=== PATIENT | male | born 1995 | race Caucasian/White ===

== ENCOUNTER 2017-01-31 01:50 | Emergency (ER) | payer SELFPAY ==
[2017-01-31 02:02] VITALS: BP 126/85
--- NOTE | 2017-01-31 02:44 | ED ---
Skin Complaint - HPI Summary HPI Summary: Pt here w/ lac to Lt foot. Was walking bare foot outside when he accidentally stepped onto the sharp rim of a grill cover. Foot bleeding. No concern for foreign body. Was able to ambulate on it after it was wrapped up. Imms are UTD. Admits to drinking ETOH after. Moving toes and ankle well w/o restriction and numbness, tingling, weakness. No other injuries to report. - History of Current Complaint Chief Complaint: EDExtremityLower Time Seen by Provider: 01/31/17 02:36 Stated Complaint: LT FOOT LAC Hx Obtained From: Patient, Family/Print Line Inspector - male friend accompanies him Pain Intensity: 2 - Allergy/Home Medications Allergies/Adverse Reactions: Allergies Allergy/AdvReac Type Severity Reaction Status Date / Time No Known Allergies Allergy Verified 01/31/17 02:04 PMH/Surg Hx/FS Hx/Imm Hx Previously Healthy: Yes Endocrine/Hematology History: Denies: Hx Anticoagulant Therapy, Hx Blood Disorders, Autoimmune Disease Infectious Disease History: No Infectious Disease History: Denies: Traveled Outside the [place] in Last 30 Days - Social History Alcohol Use: None Substance Use Type: Reports: None Review of Systems Positive: no symptoms reported Musculoskeletal: Negative Skin: Other - see HPI Neurological: Negative Psychological: Normal All Other Systems Reviewed And Are Negative: Yes Physical Exam Triage Information Reviewed: Yes Vital Signs On Initial Exam: Initial Vitals Temp Pulse Resp BP Pulse Ox 97.5 F 82 16 126/85 99 01/31/17 02:00 01/31/17 02:00 01/31/17 02:00 01/31/17 02:00 01/31/17 02:00 Vital Signs Reviewed: Yes Appearance: Positive: Well-Appearing, No Pain Distress, Well-Nourished Skin: Positive: Warm - linear laceration over MT plantar surface of Lt foot Head/Face: Positive: Normal Head/Face Inspection ENT: Positive: Hearing grossly normal Cardiovascular: Positive: Normal, Pulses are Symmetrical in both Upper and Lower Extremities Musculoskeletal: Positive: Normal, Strength/ROM Intact Neurological: Positive: Normal, Sensory/Motor Intact, Alert, Oriented to Person Place, Time Psychiatric: Positive: Normal Procedures - Laceration/Wound Repair 1 Location: lower extremity - Left plantar surface of foot Description: Linear Anesthesia: Local, Marcaine Length, Depth and Shape: 9cm x 1cm at lateral edges (0.25cm at shallowest in center of lac) Betadine Prep?: Yes Irrigated w/ Saline (ccs): 250 - soaked followed by irrigation w/ hibaclens solution Laceration/Wound Explored: clean Closure: Single Layer Suture Type: Nylon - 4-0 Number of Sutures: 14 - 2 horizontal mattress; 12 simple interrupted Layer Closure?: No Sterile Dressing Applied?: Yes - triple antibtioic + ab gauze + coban + FARTUN wrap Diagnostics - Vital Signs Vital Signs Temp Pulse Resp BP Pulse Ox 01/31/17 02:00 97.5 F 82 16 126/85 99 - Laboratory Lab Statement: Any lab studies that have been ordered have been reviewed, and results considered in the medical decision making process. Course/Dx - Diagnoses Provider Diagnoses: Laceration of foot, left Discharge - Discharge Plan Condition: Stable Disposition: HOME Prescriptions: Cephalexin CAP* [Keflex CAP*] 500 mg PO QID #40 cap Patient Education Materials: Laceration (ED), Crutch Instructions (ED), Care For Your Stitches (ED) Referrals: [facility] [place] [facility] [place] [facility] [Outside] Additional Instructions: Keep dressing clean, dry and intact for 48 hours. After this time, you may remove dressing - gently wash daily with antibacterial soap and water - rinse well and pat dry with clean cloth - reapply triple antibiotic ointment and clean gauze followed by FARTUN wrap for added protection. Rest, ice, elevate Ibuprofen alternating with acetaminophen for pain Do not bear weight until sutures are removed and PCP clears you to do so. Call tomorrow to schedule an appointment for wound check and suture removal in 14 days. *If you develop redness, swelling, purulent drainage, fever, chills, return to ED
[2017-01-31] MEDS ORDERED: Cephalexin CAP* 500 MG PO ONE (02:45)
[2017-01-31] MEDS ORDERED: Acetaminophen TAB* 325 MG PO ONE (03:38)
== END 2017-01-31 03:59 | disposition home or self-care (01) ==
LOC: ED 01:50
DX: S91.312A Laceration without foreign body, left foot, initial encounter (principal); W26.8XXA Contact with other sharp object(s), not elsewhere classified, initial encounter; Y93.9 Activity, unspecified; Y92.9 Unspecified place or not applicable
CPT/HCPCS: 12004; 99282; A9270-GY